=== PATIENT | female | born 1990 | race Caucasian/White ===

== ENCOUNTER 2017-02-24 14:41 | Outpatient (CLI) | payer OTHER ==
--- NOTE | 2017-02-24 16:23 | ULT ---
EXAM: OB ULTRASOUND: HISTORY: Evaluate size and dates. COMPARISON: None. TECHNIQUE: Sagittal and transverse imaging of the gravid uterus is performed. FINDINGS: Single intrauterine gestation, vertex presentation. Posterior placenta. No definite previa. Cervical length is 3.4 to 3.8 cm. heart tones with a rate of 145 b.p.m. 20 weeks 2 days. Estimated weight is 370 gm +/- 55 grams. Estimated delivery date by sonography is 07/12/17. Survey: The following structures are adequately demonstrated: orbits, 3-vessel cord, bladder, 4-chamber hear t, extremities, spine. Limited evaluation of the cord insertion, cerebellum, lateral ventricles, sto mach, and kidneys. Note, the lateral ventricle appears to have a somewhat oblique appearance and may be due to image acq uisition. Repeat imaging is recommended. IMPRESSION: 1. Single intrauterine gestation with vertex presentation. 2. Posterior placenta. 3. survey as above. Followup imaging is recommended to complete the survey. 4. Lateral ventricle has a somewhat oblique appearance. Repeating imaging is recommended. CODE T POS: SONALI
== END 2017-02-24 14:42 | disposition home or self-care (01) ==
LOC: ULT 14:41
PROVIDERS: ATTEND Family Medicine
DX: Z34.82 Encounter for supervision of other normal pregnancy, second trimester (principal); Z3A.20 20 weeks gestation of pregnancy
CPT/HCPCS: 76805

== ENCOUNTER 2017-04-14 08:56 | Outpatient (CLI) | payer OTHER | END 2017-04-14 08:57 | disposition home or self-care (01) | LOC: BICULT 08:56 | PROVIDERS: ATTEND Family Medicine | DX: Z34.93 Encounter for supervision of normal pregnancy, unspecified, third trimester (principal); Z3A.27 27 weeks gestation of pregnancy | CPT/HCPCS: 76816 ==

== ENCOUNTER 2017-07-13 02:46 | Inpatient (IN) | payer OTHER ==
[2017-07-13 03:15] VITALS: BMI 26.2
[2017-07-13] MEDS ORDERED: Bupivacaine 0.5% 20 ML, fentaNYL Citrate/PF 400 MCG in Sodium Chloride 0.9% 72 ML EPIDURAL SCH (03:30)
[2017-07-13] MEDS ORDERED: Ondansetron HCl/PF 4 MG/2 ML Vial IVP PRN ×2 (03:31→04:19)
[2017-07-13] MEDS ORDERED: Promethazine HCl 25 MG/ML VIAL IM PRN ×2 (03:31→04:19)
[2017-07-13] MEDS ORDERED: Lactated Ringer's 1,000 ML IV SCH ×2 (03:31)
[2017-07-13 03:36] LABS: Hemoglobin 15.6 g/dL (12.0-16.0); Mean Corpuscular HGB CONC 35.9 g/dL (32.0-36.0); Mean Corpuscular Hemoglobin 32.1 pg (27.0-31.0); Mean Corpuscular Volume 89.5 fl (81.0-99.0); Mean Platelet Volume 7.2 fL (7.4-10.4); Platelet Count 189 thou/uL (130-400); RBC Distribution Width 11.6 % (11.5-14.5); Red Blood Cell (RBC) Count 4.87 mill/uL (4.20-5.40); White Blood Cell (WBC) Count 9.8 thou/uL (4.8-10.8)
[2017-07-13] MEDS ORDERED: Lidocaine 1% (PF) 30 ML VIAL ONE (03:46)
[2017-07-13] MEDS ORDERED: LR / Pitocin 40 units/1000 ml 1,000 ML ONE (03:46)
[2017-07-13] MEDS ORDERED: Eucerin (Mineral Oil/Petrolatum,White) 30 gm Jar TOP PRN (04:19)
[2017-07-13] MEDS ORDERED: Naloxone HCl 0.4 mg/ml Vial IVP PRN ×2 (04:19)
[2017-07-13] MEDS ORDERED: Lactated Ringer's 500 ML IV PRN (04:19)
[2017-07-13] MEDS ORDERED: ePHEDrine/0.9% NaCl/PF SYRINGE 50 mg/10 ml SLOW IVP PRN (04:19)
[2017-07-13] MEDS ORDERED: Acetaminophen 325 MG TAB PO PRN (04:19)
[2017-07-13] MEDS ORDERED: diphenhydrAMINE 50 MG/ML VIAL IVP PRN (04:19)
[2017-07-13] MEDS ORDERED: Fentanyl 4mcg/Marcaine 0.1% Cassette 100 ML EPIDURAL SCH (04:30)
[2017-07-13] MEDS ORDERED: Communication Order-Pharmacy FS SCH (04:30)
[2017-07-13 04:37] LABS: HBSAg Index 0.17 S/CO (0-0.99); Hep B Surf Ag Non-Reactive S/CO (NonReactive)
[2017-07-13 05:08] LABS: Syphilis Antibody Nonreactive (Nonreactive); Syphilis Antibody Index 0.04 S/CO (<1.00 Non-Reactive)
[2017-07-13] MEDS ORDERED: diphenhydrAMINE 25 MG CAP PO PRN (08:17)
[2017-07-13] MEDS ORDERED: Benzocaine/Menthol 20-0.5% 60 ML CAN TOP PRN (08:17)
[2017-07-13] MEDS ORDERED: Milk Of Magnesia 30 ML UDCUP PO PRN (08:17)
[2017-07-13] MEDS ORDERED: Bisacodyl 10 MG SUPP PR PRN (08:17)
[2017-07-13] MEDS ORDERED: Preparation H Ointment 28 GM TUBE PR PRN (08:17)
[2017-07-13] MEDS ORDERED: Lanolin Ointment 7 GM TUBE TOP PRN (08:17)
[2017-07-13] MEDS ORDERED: LR / Pitocin 40 units/1000 ml 1,000 ML IV SCH (08:17)
[2017-07-13] MEDS: Docusate Calcium (SURFAK) 240 MG CAP PO SCH (11:12)
[2017-07-13] MEDS: Ferrous Sulfate 325 MG TAB PO SCH ×2 (11:12→18:32)
[2017-07-13] MEDS: Ibuprofen 800 MG TAB PO SCH ×2 (12:09→20:06)
[2017-07-13] MEDS: HYDROcodone/Acetaminophen 5/325 mg Tablet PO PRN (20:10)
[2017-07-14] MEDS: HYDROcodone/Acetaminophen 5/325 mg Tablet PO PRN ×2 (00:55→09:08)
[2017-07-14 03:33] VITALS: TEMP 98.1
[2017-07-14] MEDS: Docusate Calcium (SURFAK) 240 MG CAP PO SCH ×2 (05:08→09:08)
[2017-07-14] MEDS: Ibuprofen 800 MG TAB PO SCH (05:28)
--- NOTE | 2017-07-14 08:19 | PDOC.PP ---
Post Progress Note Post Day #: 1 Subjective: No c/o, lochia normal, well PO intake tolerated: yes Flatus: yes Ambulation: yes Vital Signs (12 hours) Temp Pulse Resp BP BP 07/14/17 05:20 98.1 F 70 18 98/57 L 07/14/17 00:00 98.1 F 71 18 107/56 L Weight Weight 148 lb - Physical Examination General: NAD Cardiovascular: no m/r/g, RRR Respiratory: clear to auscultation bilaterally, non-labored breathing Abdominal: + bowel sounds, lochia, no distention, appropriately TTP Psychiatric: A&Ox3, normal affect Result Diagrams: 07/13/17 03:20 Additional Labs: Post Labs Blood Type O POSITIVE 07/13/17 03:20 Hep Bs Antigen Non-Reactive S/CO (NonReactive) 07/13/17 03:20 (1) Vaginal delivery Code(s): O80 - ENCOUNTER FOR FULL-TERM UNCOMPLICATED DELIVERY Status: Acute - Assessment/Plan PPD #1 Doing well Routine care D/C home
[2017-07-14 08:24] VITALS: BP 96/52
[2017-07-14] MEDS: Ferrous Sulfate 325 MG TAB PO SCH (09:10)
== END 2017-07-14 10:55 | disposition home or self-care (01) | DRG 775 ==
LOC: L&D/OP 02:46 → L&D 03:16 → 3SW 10:18
PROVIDERS: ADMIT Family Medicine; ATTEND Family Medicine
PROC: 10E0XZZ Delivery of Products of Conception, External Approach (ICD-10-PCS; principal; 2017-07-13)
DX: O80 Encounter for full-term uncomplicated delivery (principal); Z37.0 Single live birth; Z3A.39 39 weeks gestation of pregnancy
CPT/HCPCS: 51702; 85027; 86780; 87340; 99285; J2001; J3010; J3490; J7050